=== PATIENT | male | born 1960 | race Two or more races ===

== ENCOUNTER 2019-07-29 08:50 | Inpatient (IN) | payer MEDICAID, OTHER ==
[~2019-07-29] VITALS: Ht 162.6 cm; Wt 56.7 kg
[2019-07-29] MEDS ORDERED: IV NS 0.9% 500 ML BAG IV ONE (09:00)
--- NOTE | 2019-07-29 09:15 | NUR ---
Vincentian speaking only autism tutor Jamilah utilized to assist in conversing and updating pt w/plan of care.
[2019-07-29 09:17] LABS: BASOPHILS % (AUTO) 0.5 % (0.0-2.0); EOSINOPHILS % (AUTO) 0.3 % (0.0-6.0); HEMATOCRIT 36 % (39-51); HEMOGLOBIN 11.8 g/dL (13.5-17.5); LYMPHOCYTES # (AUTO) 0.6 /CMM (0.8-4.8); LYMPHOCYTES % (AUTO) 7.5 % (20.0-44.0); MEAN CORPUSCULAR HGB CONC 33 g/dl (31.0-36.0); MEAN CORPUSCULAR VOLUME 86 fL (80-96); MONOCYTES # (AUTO) 0.8 /CMM (0.1-1.30); MONOCYTES % (AUTO) 9.1 % (2.0-12.0); NEUTROPHILS # (AUTO) 6.9 /CMM (1.8-8.9); NEUTROPHILS % (AUTO) 82.6 % (43.0-81.0); PLATELET COUNT (AUTO) 294 /CMM (150-450); RED BLOOD CELL COUNT(AUTO) 4.15 MIL/uL (4.5-6.0); WHITE BLOOD COUNT (AUTO) 8.4 K/uL (4.3-11.0)
[2019-07-29 09:25] LABS: CALCIUM, SERUM 8.8 mg/dL (8.5-10.1); CARBON DIOXIDE 26 mmol/L (21-32); CHLORIDE 100 mmol/L (98-107); CREATININE 0.7 mg/dL (0.6-1.3); GLUCOSE 100 mg/dL (74-106); POTASSIUM 2.9 mmol/L (3.5-5.1); SODIUM SERUM 136 mmol/L (136-145); UREA NITROGEN, BLOOD 9 mg/dL (7-18)
[2019-07-29 09:41] LABS: ALANINE AMINOTRANSFERASE 38 U/L (12-78); ALBUMIN 3.3 g/dL (3.4-5.0); ALCOHOL, BLOOD 4 mg/dL (0-0); ALKALINE PHOSPHATASE 94 U/L (46-116); ASPARTATE AMINOTRANSFERASE 82 U/L (15-37); BILIRUBIN,DIRECT 0.3 mg/dL (0.0-0.2); BILIRUBIN,TOTAL 0.8 mg/dL (0.2-1.0); TOTAL PROTEIN, SERUM 7.7 g/dL (6.4-8.2)
[2019-07-29 09:42] LABS: SALICYLATE 0.7 mg/dL (2.8-20.0)
--- NOTE | 2019-07-29 10:15 | NUR ---
PT finally consents to starting IV. Fluids given as ordered. Mediacted. Await admission
[2019-07-29] MEDS ORDERED: POTASSIUM CL. PREMIX PERIPHER. 50 ML ONE ×2 (10:19→11:34)
[2019-07-29] MEDS: POTASSIUM CL. PREMIX PERIPHER. 50 ML IV SCH ×2 (10:23→11:43)
[2019-07-29 11:30] VITALS: BP 153/88
[2019-07-29] MEDS ORDERED: MAG HYDROX/AL HYDROX/SIMETH 30 ML UDC PO PRN (11:30)
[2019-07-29] MEDS ORDERED: ZOLPIDEM TARTRATE 5 MG TABLET PO PRN (11:30)
[2019-07-29] MEDS ORDERED: MAGNESIUM HYDROXIDE 30 ML UDC PO PRN (11:30)
[2019-07-29] MEDS ORDERED: Z GUARD REMEDY 2 OZ OINT TP PRN (11:30)
[2019-07-29] MEDS ORDERED: ACETAMINOPHEN 325 MG TABLET PO PRN (11:30)
[2019-07-29] MEDS ORDERED: ONDANSETRON HCL/PF 4 MG/2 ML VIAL IVP PRN (11:30)
[2019-07-29] MEDS ORDERED: LORAZEPAM INJ 2 MG/ML VIAL IV PRN (11:30)
[2019-07-29] MEDS ORDERED: HYDROCODONE/APAP 5/325MG 1 EACH TABLET PO PRN (11:30)
[2019-07-29] MEDS ORDERED: MVI-12 10ML IV ONE (11:30)
--- NOTE | 2019-07-29 11:57 | NUR ---
PT GOING TO 314-2.
--- NOTE | 2019-07-29 12:11 | NUR ---
INSURANCE CALLED SPOKE TO MEDHAT STATED SHE WILL CALL ME BACK
[2019-07-29] MEDS ORDERED: MVI ADULT 10ML VIAL = 1AMP 10 ML in IV NS 0.9% 1,000 ML IV ONE (13:00)
--- NOTE | 2019-07-29 13:30 | NUR ---
SILVERWARE WASHER NOTES RECEIVED PT FROM E.R. STAFF [employer]IA [employer], PT IS ALERT TO SELF, SLEEPY, ASSISTED TO BED, MADE COMFORTABLE, ROOM SET UP ORIENTATION PROVIDED, NEEDS FURTHER INSTRUCTIONS, PT ABLE TO ANSWER QUESTIONS AT TIMES, SLEEPY, VITAL SIGNS STABLE, TAKEN AND RECORDED, SR ON TELE MONITOR, NO COMPLAINT OF PAIN, NOT IN DISTRESS, KEPT WARM AND COMFORTABLE IN BED, SKIN TREATMENT AND DRESSING CHANGE DONE TO LEFT KNEE ABRASION.
--- NOTE | 2019-07-29 13:31 | NUR ---
Patient awake alert to name only noted able to follows command @ this time report given to grayson jefferson
[2019-07-29] MEDS: Thiamine 100 MG in IV D5W 50 ML IV SCH (14:16)
--- NOTE | 2019-07-29 15:19 | NUR ---
LEARNING FACILITATOR NOTES PT IN BED, ASLEEP, SKIN ASSESSMENT DONE, PARTIAL SKIN ASSESSMENT DONE, PT REFUSING TO REMOVE HIS SHIRT.
[2019-07-29] MEDS: Folic acid 1 MG in IV D5W 50 ML IV SCH (15:23)
[2019-07-29 16:00] VITALS: BP 137/81
--- NOTE | 2019-07-29 18:07 | NUR ---
COAL PICKER NOTES PT IN BED, ASLEEP, EASY TO AROUSE, VERBALLY RESPONSIVE, STILL VERY SLEEPY, NOT IN DISTRESS, IV FLUIDS INFUSING WELL, CALL LIGHT WITHIN REACH, KEPT WARM AND COMFORTABLE.
--- NOTE | 2019-07-29 19:45 | NUR ---
MS/RN NOTES RECEIVED PT. LYING IN BED RESTING. PT. IS EASILY AROUSABLE TO NAME AND TOUCH. PT. IS AWAKE, ALERT AND ORIENTED X2. BREATHING EVEN AND UNLABORED ON ROOM AIR. NO SOB, RESPIRATORY DISTRESS OR COMPLAINTS OF PAIN NOTED AT THIS TIME. PT. WITH RIGHT HAND 20 GAUGE PERIPHERAL IV PRESENT, PATENT AND INTACT ADMINISTERING TO PT. MULTIVITAMINS IN NS @ 125 ML/HR. NO S/S OF WITHDRAWAL NOTED AT THIS TIME. BED LOCKED AND IN LOWEST POSITION, SIDE RAILS UP X3, BED ALARM ON, CALL LIGHT WITHIN REACH, WILL CONTINUE TO MONITOR.
[2019-07-29 20:00] VITALS: BP 126/76
[2019-07-30] MEDS: IV NS 0.9% 1,000 ML IV PRN ×2 (04:37→17:08)
[2019-07-30 06:20] LABS: BASOPHILS % (AUTO) 0.8 % (0.0-2.0); EOSINOPHILS % (AUTO) 2.9 % (0.0-6.0); HEMATOCRIT 35 % (39-51); HEMOGLOBIN 11.2 g/dL (13.5-17.5); LYMPHOCYTES # (AUTO) 0.9 /CMM (0.8-4.8); LYMPHOCYTES % (AUTO) 14.5 % (20.0-44.0); MEAN CORPUSCULAR HGB CONC 32 g/dl (31.0-36.0); MEAN CORPUSCULAR VOLUME 87 fL (80-96); MONOCYTES # (AUTO) 0.7 /CMM (0.1-1.30); MONOCYTES % (AUTO) 11.8 % (2.0-12.0); NEUTROPHILS # (AUTO) 4.2 /CMM (1.8-8.9); PLATELET COUNT (AUTO) 254 /CMM (150-450); RED BLOOD CELL COUNT(AUTO) 4.06 MIL/uL (4.5-6.0)
--- NOTE | 2019-07-30 06:22 | NUR ---
MS/RN NOTES PT. IS LYING IN BED RESTING. BREATHING EVEN AND UNLABORED ON ROOM AIR. NO SOB, RESPIRATORY DISTRESS OR COMPLAINTS OF PAIN NOTED AT THIS TIME AND THROUGHOUT SHIFT. NO S/S OF WITHDRAWAL NOTED AT THIS TIME AND THROUGHOUT SHIFT. PT. WITH RIGHT HAND 20 GAUGE PERIPHERAL IV PRESENT, PATENT AND INTACT ADMINISTERING TO PT. NS @ 125 ML/HR. ALL PT. NEEDS MET. BED LOCKED AND IN LOWEST POSITION, SIDE RAILS UP X3, BED ALARM ON, CALL LIGHT WITHIN REACH, WILL ENDORSE TO DAYSHIFT NURSE FOR CONTINUITY OF CARE.
[2019-07-30 06:52] LABS: CREATININE 0.7 mg/dL (0.6-1.3); MAGNESIUM 1.4 mg/dL (1.8-2.4); PHOSPHORUS 3.2 mg/dL (2.5-4.9); POTASSIUM 3.5 mmol/L (3.5-5.1)
[2019-07-30 08:00] VITALS: BP 155/89
[2019-07-30] MEDS: CYANOCOBALAMIN 500 MCG TABLET PO SCH (09:13)
[2019-07-30] MEDS: Magnesium 1GM/D5W 100ML PREMIX 100 ML IV SCH ×4 (10:07→17:06)
--- NOTE | 2019-07-30 11:09 | NUR ---
MS1/WASH DRILLER HELPER CONSULT PT SEEN & EXAMINED BY WOUND CARE NURSE. NO ORDERS RECEIVED AT THIS TIME.
[2019-07-30] MEDS ORDERED: HYDROGEL DRESSING 90 GM TUBE TP PRN (11:30)
--- NOTE | 2019-07-30 11:32 | NUR ---
WOUND CARE CONSULT: PT PRESENTS WITH STAGE 2 ULCER TO SACRUM AND LEFT KNEE ABRASION, PRESENT ON ADMISSION. RECOMMENDATIONS MADE FOR WOUND CARE AND SKIN PROTECTION. DISCUSSED WITH NURSING STAFF. WILL SEE PRN. NOVAK IN AGREEMENT WITH PLAN OF CARE. Addendum: 07/30/19 at 1134 by MIAN MORENO WNDNU Amended: Links added.
--- NOTE | 2019-07-30 11:44 | NUR ---
Social service consult requested by Dr. Rondon for possible homelessness. Pt. is a 59 year old male who was admitted to [facility] for altered mental status. CH[facility] met with the pt. bedside with protective services case worker Francheska for translation. Pt. is Bahamian speaking only. Pt. is alert and oriented x 4. Pt. resides with his mom Cheri in [place] but couldn't provide the exact address. Pt. stated, he lives in [address]. Pt. was unable to provide his mother phone number as well. Pt. states he drinks alcohol occasionally, usually after work. His drink of choice is beer. Pt. will require a TAP card to get home once medically cleared for discharge. CHINEDU updated [facility] 3 CRN Vanna regarding pt's discharge plan. No other social service needs are requested at this time. SW is available, if needed.
--- NOTE | 2019-07-30 13:11 | NUR ---
MS / RN PATIENT RECEIVED FROM PM SHIFT. PATIENT WAS FOUND SLEEPING, ABLE TO AROUSE PATIENT. PATIENT. PATIENT IS SATURATING WELL, BREATHING UNLABORED, LUNG SOUNDS CLEAR. PATIENT STATED HE WAS NOT IN PAIN. PATIENT HAS IV SITE RIGHT HAND, COVER WITH BANDAGE. PATIENT HAS ABRASIONS ON LEFT KNEE, RIGHT KNEE, LEFT ELBOW AND RIGHT ELBOW. PATIENTS CALL LIGHT WITH IN REACH , SAFETY MAINTAIN AND ON GOING MONITORING
[2019-07-30] MEDS: Thiamine 100 MG in IV D5W 50 ML IV SCH (14:07)
[2019-07-30] MEDS: Folic acid 1 MG in IV D5W 50 ML IV SCH (14:54)
[2019-07-30] MEDS: HYDROGEL DRESSING 90 GM TUBE TP SCH (14:54)
[2019-07-30 16:00] VITALS: BP_SYST 115; BP_SYST 155; BP_DIAS 67
--- NOTE | 2019-07-30 17:30 | NUR ---
MS / RN NO CHANGE OF CONDITION. PATIENT OFFERED PM CARE BUT REFUSED. MONITORING CONTINUED
--- NOTE | 2019-07-30 19:27 | NUR ---
MS/RN AM END SHIFT NOTES NO ACUTE CHANGE OF CONDITION DURING THE SHIFT ALL NEEDS MET. PATIENT ENDORSED BY PM SHIFT TO CONTINUE CARE. PATIENT IS INDEPENDENT . PATIENT IS RESTING ON THE BED DURING CHANGE OF SHIFT. CALL LIGHT WITH IN REACH AND SAFETY MAINTAINED
--- NOTE | 2019-07-30 19:30 | NUR ---
MS/RN NOTES RECEIVED PT. LYING IN BED. PT. IS AWAKE, ALERT AND ORIENTED X 2-3. BREATHING EVEN AND UNLABORED ON ROOM AIR. NO SOB, RESPIRATORY DISTRESS OR COMPLAINTS OF PAIN NOTED AT THIS TIME. PT. WITH RIGHT HAND 20 GAUGE PERIPHERAL IV PRESENT, PATENT AND INTACT ADMINISTERING TO PT. NS @ 125 ML/HR. NO S/S OF WITHDRAWAL NOTED AT THIS TIME. BED LOCKED AND IN LOWEST POSITION, SIDE RAILS UP X3, BED ALARM ON, CALL LIGHT WITHIN REACH, WILL CONTINUE TO MONITOR.
[2019-07-30 20:00] VITALS: BP 133/73
--- NOTE | 2019-07-31 03:15 | NUR ---
MS/RN NOTES PT. PULLED OUT IV ACCESS. NO S/S OF BLEEDING NOTED AT IV SITE. ATTEMPTED TO INSERT NEW IV ACCESS AND WAS UNSUCCESSFUL. PT. IS NOW REFUSING NEW IV ACCESS INSERTION. EDUCATED PT. ON RISK VS BENEFIT. PT. CONTINUES TO REFUSE. WILL CONTINUE TO MONITOR.
--- NOTE | 2019-07-31 06:31 | NUR ---
MS/RN NOTES PT. IS LYING IN BED. PT. IS AWAKE, ALERT AND ORIENTED X 2-3. BREATHING EVEN AND UNLABORED ON ROOM AIR. NO SOB, RESPIRATORY DISTRESS OR COMPLAINTS OF PAIN NOTED AT THIS TIME AND THROUGHOUT SHIFT. NO S/S OF WITHDRAWAL NOTED AT THIS TIME AND THROUGHOUT SHIFT. PT. REMAINS WITH NO IV ACCESS AT THIS TIME. PT. CONTINUES TO REFUSE IV ACCESS. ALL PT. NEEDS MET. BED LOCKED AND IN LOWEST POSITION, SIDE RAILS UP X3, BED ALARM ON, CALL LIGHT WITHIN REACH, WILL ENDORSE TO DAYSNMFT NURSE FOR CONTINUITY OF CARE.
[2019-07-31 06:49] LABS: CALCIUM, SERUM 7.9 mg/dL (8.5-10.1); CREATININE 0.6 mg/dL (0.6-1.3); MAGNESIUM 1.9 mg/dL (1.8-2.4); POTASSIUM 3.4 mmol/L (3.5-5.1)
[2019-07-31 06:52] LABS: BASOPHILS # (AUTO) 0.1 /CMM (0.0-0.2); PLATELET COUNT (AUTO) 253 /CMM (150-450)
[2019-07-31 06:56] LABS: BASOPHILS % (AUTO) 1.1 % (0.0-2.0); EOSINOPHILS % (AUTO) 3.9 % (0.0-6.0); HEMATOCRIT 35 % (39-51); HEMOGLOBIN 11.1 g/dL (13.5-17.5); LYMPHOCYTES # (AUTO) 1.1 /CMM (0.8-4.8); LYMPHOCYTES % (AUTO) 20.2 % (20.0-44.0); MEAN CORPUSCULAR HGB CONC 32 g/dl (31.0-36.0); MEAN CORPUSCULAR VOLUME 87 fL (80-96); MONOCYTES # (AUTO) 0.7 /CMM (0.1-1.30); MONOCYTES % (AUTO) 12.8 % (2.0-12.0); NEUTROPHILS # (AUTO) 3.3 /CMM (1.8-8.9); RED BLOOD CELL COUNT(AUTO) 4.02 MIL/uL (4.5-6.0); WHITE BLOOD COUNT (AUTO) 5.3 K/uL (4.3-11.0)
[2019-07-31 08:00] VITALS: BP 141/81
[2019-07-31 08:18] VITALS: BP 148/81
[2019-07-31] MEDS: CYANOCOBALAMIN 500 MCG TABLET PO SCH (08:51)
[2019-07-31] MEDS: HYDROGEL DRESSING 90 GM TUBE TP SCH (08:52)
[2019-07-31] MEDS ORDERED: POTASSIUM CHLORIDE 20 MEQ TAB.PRT.SR PO SCH (10:30)
[2019-07-31] MEDS ORDERED: THIAMINE HCL 100 MG TABLET PO SCH (13:00)
[2019-07-31] MEDS ORDERED: FOLIC ACID 1 MG TABLET PO SCH (14:00)
--- NOTE | 2019-07-31 15:00 | NUR ---
REFUSAL OF WOUND CARE PHOTOS LEFT AND RIGHT KNEES, LEFT ELBOW, AND SACRUM. PATIENT TOOK ALL BELONGINGS AND WAS TRANSPORTED VIA WHEELCHAIR FOR RIDE TO HOME. PATIENT INTRAVENOUS SITE DISCONTINUED. CLEAN, DRY, INTACT SITE WITHOUT DRAINAGE. IDENTIFICATION BRACELET REMOVAL. PATIENT VERBALIZES UNDERSTANDING AND WAS GIVEN A COPY OF DISCHARGE INSTRUCTIONS, MEDICATION RECONCILIATION AND NEW PRESCRIPTIONS. BEATRIZ Luevano RN
== END 2019-07-31 15:00 | disposition home or self-care (01) | DRG 775 ==
LOC: ER 08:58 → TELE 12:30 → MED 18:56
PROVIDERS: ADMIT Family Medicine; ATTEND Nurse Practitioner Acute Care
DX: F10.239 Alcohol dependence with withdrawal, unspecified (principal); E44.1 Mild protein-calorie malnutrition; G31.2 Degeneration of nervous system due to alcohol; E83.42 Hypomagnesemia; D63.8 Anemia in other chronic diseases classified elsewhere; E87.6 Hypokalemia; E88.09 Other disorders of plasma-protein metabolism, not elsewhere classified
CPT/HCPCS: 36415; 70450-TC; 71045-TC; 80048-TC; 80061-TC; 80076-TC; 82140-TC; 83735-TC; 84100-TC; 84484-TC; 85025-TC; 87081-TC; A6248; G0378; G0480; J3411; J3475; J3480; J3490; J7030; J7040; J7060